=== PATIENT | female | born 1960 | race Caucasian/White ===

== ENCOUNTER 2017-01-22 10:28 | Emergency (ER) | payer OTHER ==
[~2017-01-22] VITALS: Ht 160 cm; Wt 73.1 kg
[~2017-01-22 10:28] MED LIST: ALTACE10 MG PO; ASPIRIN E.C.81 M1 PO; BACTRIM,SEPT1 TABLET PO; BETASERON0.3 MG SC; CIPRO500 MG PO; DAILY VITAMIN1 EAC8 PO; FEROSUL325 MG PO; FISH OIL 1,0001 EAC7 PO; FISH OIL 1,0001 EACH PO; FISH OIL 1,2001 EAC4 PO; FISH OIL SOFTG1 EAC2 PO; FLEXERIL10 MG PO; FLOMAX0.4 MG PO; IRON18 MG PO; MACROBID100 MG PO; MOTRIN800 MG PO; Milk Of Magnesia,MOM PO; Motrin PO; NAPROSYN500 MG PO; NEURONTIN300 MG PO; NORCO 5/3251 TABLET PO; NORCO 7.5/321 TABLET PO; ONE DAILY FOR1 EAC1 PO; ONE DAILY1 EAC3 PO; OXYCODONE HCL10 MG PO; PERCOCET 5/31 TABLET PO; PRAVACHOL40 MG PO; PRAVASTATIN SOD40 MG PO; PREDNISONE10 M1 PO; PROMETHAZINE HC25 M1 PO; PROPRANOLOL HCL40 MG PO; RAMIPRIL; RAMIPRIL10 MG PO; RANITIDINE HCL150 M1 PO; TAMIFLU75 MG PO; TOPAMAX25 MG PO; TORADOL10 MG PO; TYLENOL EXTRA500 MG PO; TYLENOL PM PO; TYLENOL WITH C1 EACH PO; Tylenol Extra Streng PO; ULTRAM50 MG PO; VITAMIN D1000 INTUN PO; VITAMIN D31000 UNI2 PO; VITAMIN D31000 UNIT PO; VITAMIN D400 UNI1 PO; VITAMIN E200 UNI2 PO; ZANTAC 2525 MG PO
[2017-01-22 11:23] LABS: HEMATOCRIT 47.1 % (36.0-46.0); MCH 29.5 PG (29.0-34.0); MCHC 32.9 G/DL (30.0-36.0); MCV 89.7 FL (83-99); MEAN PLAT.VOLUME 9.4 uM^3 (9.5-12.4); PLATELET COUNT 316 K/uL (156-360); RBC DIS.WIDTH-CV 12.3 % (11.8-14.6); RBC DIS.WIDTH-SD 40.5 % (39-53); RED BLOOD COUNT 5.25 M/uL (3.80-5.20); WHITE BLOOD COUNT 10.5 K/uL (4.1-10.2)
[2017-01-22 11:35] LABS: CHLORIDE 106 mEq/L (99-109); POTASSIUM 3.6 mEq/L (3.7-5.4); SODIUM 141 mEq/L (136-147)
[2017-01-22 11:37] LABS: GLUCOSE 122 mg/dL (70-99)
[2017-01-22 11:38] LABS: ANION GAP 11 MEQ/L (2-14); D-DIMER ELISA 0.27 mg/L FEU (< 0.57)
[2017-01-22 11:41] LABS: GFR ESTIMATE (CALCULATED) > 59 mL/min/
[2017-01-22 11:42] LABS: UREA NITROGEN (BUN) 16 mg/dL (9-23)
[2017-01-22 11:44] LABS: TROP-I INTERPRETATION NEGATIVE; TROPONIN-I < 0.01 ng/mL (0.0-0.30)
[2017-01-22 13:56] LABS: TROP-I INTERPRETATION NEGATIVE; TROPONIN-I < 0.01 ng/mL (0.0-0.30)
[2017-01-22] MEDS ORDERED: NAPROSYN500 MG PO (14:01)
[2017-01-22 14:35] VITALS: BP 141/81
== END 2017-01-22 14:36 | disposition home or self-care (01) ==
LOC: EME 10:28
PROVIDERS: Emergency Medicine
DX: R07.9 Chest pain, unspecified (principal); I10 Essential (primary) hypertension; M25.512 Pain in left shoulder; G35 Multiple sclerosis; Z87.442 Personal history of urinary calculi; F17.200 Nicotine dependence, unspecified, uncomplicated
CPT/HCPCS: 71010; 73030; 80048; 83880; 84484; 85027; 85379; 93005; 99281; 99284